=== PATIENT | male | born 1975 | race Caucasian/White ===

== ENCOUNTER 2022-12-02 00:58 | Day surgery (SDC) | payer OTHER, SELFPAY ==
--- NOTE | 2022-12-01 15:28 | PC.NURSE ---
Report to the Outpatient Waiting Room, entrance under the green pavilion located off [facility], at time 1100__ on date 12/02/22 _. Planned Procedure Time: 1300_. Time changes happen often and if your time is changed the preop area will call you the afternoon before. - You and your visitor will be asked to self-screen and do not enter if you have any COVID symptoms. - A mask is optional within the hospital at this time. Patients may have clear liquids (water, carbonated beverages, clear teas, apple juice) until 3 hours prior to surgery with a maximum of 20 ounces. - No food from midnight until time of surgery - Infants may have breast milk until 4 hours before surgery, formula 6 hours prior to surgery. - Children will be allowed to drink immediately following surgery. If applicable, please bring a bottle or sippy cup to assist with drinking. Juice, water, soda, and popsicles are readily available. For infants on formula, please bring formula the day of surgery. Pacifiers are allowed. Take the following medications with a SIP of water the morning of surgery: NONE__ DO NOT STOP ANY OF YOUR OTHER PRESCRIPTION MEDICATIONS PRIOR TO SURGERY ?EXCEPT THE FOLLOWING Medications to discontinue per physician NONE Date to take last dose N/A Please no make-up, nail maltese, hairspray, perfume, deodorant, or body powder the day of surgery. No jewelry (including any body piercings) or valuables the day of surgery, leave them at home. Please take a shower or bath the night before, or the morning of, surgery with an antibacterial soap. Wear comfortable, loose fitting clothing. Children are encouraged to wear pajamas. - Jewelry must be removed prior to entering the operating room. Rings and piercings that are not removed may be cut off. - The hospital will not accept responsibility for valuables. - Please leave all valuables, including medications, at home the day of surgery. If you are going home after surgery, a licensed power screwdriver operator must drive you home. - NO public transportation without another adult if you receive anesthesia. - We recommend that an adult stay with you for 24 hours following discharge. - We also recommend that you do not drive, make important decision, drink alcoholic beverages, or take any drugs that were not prescribed by your health care provider for at least 24 hours after your discharge time. For Pediatric surgeries, we recommend two adults accompany the child home. Follow any additional instructions given to you from your surgeon. If you or anyone in your household have experienced Covid symptoms in the past week, please notify your surgeon or the nurse liaison at the phone number below for possible testing. Telephone instructions given to _PATIENT_and asked if any additional questions and then verbalized understanding. Patient advised to call surgeon office or pre surgery nurse liaison [phone] if any additional questions.
[2022-12-02] VITALS (7 sets, daily range): BP systolic 133–163; BP diastolic 85–102; PULSE 50–72; RESP 12–16; TEMP 36.8–36.9; O2SAT 95–100
--- NOTE | 2022-12-02 05:35 | WPDHPUPDATE1 ---
History and Physical Update Update Date/Time: 12/02/22 05:35 History and Physical has been reviewed, including an updated exam of the patient. There are NO changes in the patient's condition. Risks, benefits, and alternatives have been discussed and questions answered. Patient agrees to proceed with procedure.
--- NOTE | 2022-12-02 09:50 | P.PNAN_ITS ---
Anes - Initial Pre Proc Eval Procedure: Operation Date: 12/02/22 13:00 Proposed Procedures p Left Extracorporeal Shock Wave Lithotripsy - Inder Perez MD Date/Time: 12/02/22 09:50 Surgeon: Inder Perez MD Pre Op Diagnosis: left ureteral stone Patient Data Age: 46 Gender: M Height: Weight: Allergies Allergy/AdvReac Type Severity Reaction Status Date / Time No Known Drug Allergies Allergy Unknown Unknown Verified 12/01/22 15:23 Patient hx anesthesia problems: none Family hx anesthesia problems: none Results Review: All pre-operative results and documents have been reviewed as part of the pre-operative evaluation. [facility] Past Medical History Medical History (Updated 12/02/22 @ 09:51 by Giacomo Kendrick MD) Smoker Ureterolithiasis Social History Social History (Updated 05/30/22 @ 15:03 by Ashleigh Bradley MA) Smoking packs per day: 0.5 Smoking cigarettes per day: 10.0 Years smoked: 20 Smoking pack-years: 10.00 Smoking status: Current every day smoker Tobacco type: cigarettes Alcohol intake: current Drinks per week: 2 Substance use: never Living arrangements: with family Occupation/Education: occupation Anes - Eval Final PreProcedure Day of Procedure 12/02/22 09:50 Patient weight: overweight Heart: regular rate and rhythm Lungs: clear to auscultation and normal air movement Airway: Mallampati scale class II Neurological: alert and oriented Last oral intake: >/= 8 hours ASA classification: III Emergent: no Anesthetic plan: proceed Anesthesia type and monitoring: general LMA Results Review: All pre-operative results and documents have been reviewed as part of the pre- operative evaluation. Informed Consent: The patient's anesthetic plan and its attendant risks and benefits were discussed with the patient/family/POA. Questions were solicited and answers provided to the satisfaction of the patient/family/POA.
[2022-12-02 11:59] LABS: Prothrombin Time 13.2 Seconds (11.1-14.7)
[2022-12-02 12:00] LABS: Partial Thromboplastin Time 29.4 SECONDS (22.3-36.8)
[2022-12-02] MEDS: LACTATED RINGERS 1,000 ML 30 ML IV CONT (12:55)
[2022-12-02] MEDS: ceFAZolin 2 GM/D5W 50 ML 2 GM/50 ML BAG IVPB (13:04)
--- NOTE | 2022-12-02 13:33 | W.PM.PROC2 ---
Procedure Note - Detailed Date of Procedure 12/02/22 Pre-op Diagnosis Left renal stone Post-op Diagnosis Same Procedure Performed Cystoscopy, left ureteral stent placement, left ESWL Surgeon Inder Perez MD Anesthesia General Description of Procedure The patient was brought to the operative suite where he was placed in the supine position on the Dornier lithotripter table. Flexible cystoscopy was undertaken with a 16F flexible cystoscopy. There were no urethral strictures. The prostatic urethra estimated length was 2.0cm. There was no obstruction of the prostatic urethra with no median lobe enlargement. The bladder mucosa was normal and there was a single, orthotopic ureteral orifice bilaterally. A 0.035 glidewire was advanced into the left renal pelvis under fluoroscopy. A 4.8F J-J ureteral stent was positioned with the proximal coil in the renal pelvis and the distal coil in the bladder. The patient was then repositioned in the supine position with the focal point of the lithotriptor on a 14mm left renal pelvic calculus. A total of 2500 shocks were delivered at a power setting of 4. There appeared to be good fragmentation of the stone. The patient tolerated the procedure well and was taken to the recovery room in good condition. Drains No Packing No Pathology None sent Complications No immediate complications Condition Stable
[2022-12-02] MEDS: fentaNYL CITRATE INJ (*CRX) 100 MCG/2 ML VIAL 25 MCG IV PUSH ×4 (14:14→14:35)
[2022-12-02] MEDS: oxyCODONE HCL (*CRX) 5 MG TAB IR PO (15:01)
== END 2022-12-02 15:34 | disposition home or self-care (01) ==
PROVIDERS: PCP Physician Assistant Medical; Visit Provider Urology
PROC: (CPT 50590; principal; 2022-12-02 13:00)
DX: N20.0 Calculus of kidney (principal); F17.210 Nicotine dependence, cigarettes, uncomplicated
CPT/HCPCS: 52332; 50590; 36415; 85610; 85730; A9270; C1769; C2617; J0131; J0690; J1100; J2250; J2405; J2704; J3010; J7120

== ENCOUNTER 2022-12-20 12:47 | Outpatient (CLI) | payer OTHER, SELFPAY ==
--- NOTE | ~2022-12-20 | XR_ITS ---
EXAMINATION: XR abdomen/kub 1V INDICATION: Calculus of the kidney TECHNIQUE: Supine views of the abdomen were obtained on 2 radiographs. COMPARISON: None FINDINGS: A left internal ureteral stent is in expected position. There is a 12 mm x 2 mm linear calc ification of the left kidney lower pole. The visualized lung bases are clear. The bowel gas pattern i s normal. The heart size is normal. 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 IMPRESSION: 1. Left internal ureteral stent in expected position with stone of the left kidney lower pole. Reviewed, dictated and finalized at location L. IMPRESSION: 1. Left internal ureteral stent in expected position with stone of the left kid binh lower pole.
== END 2022-12-20 12:48 | disposition home or self-care (01) ==
LOC: ANHIMG 12:49
PROVIDERS: PCP Physician Assistant Medical; Visit Provider Urology
DX: N20.0 Calculus of kidney (principal)
CPT/HCPCS: 74018